=== PATIENT | male | born 1940 | race Caucasian/White ===

== ENCOUNTER → 2016-04-27 | Outpatient (CLI) | payer OTHER, BC ==
[~2016-04-27] MED LIST: AMIO200T4 PO; ASPI-435 PO; ASPI325T45 PO; BROM0.0911 OP; CLC/300 PO; DORZ2SOL17 OP; FLM4 PO; HYDR-3419 PO; LORA-741 PO; LPT40 PO; MULT-618 PO; MULTTAB58 PO; NITR-5 PO; OMEG-27 PO; OMEGCAP2 PO; POTASSIUM CITRATE PO; PRED1SUS3 OPL; TOBRSUS; WARF2TAB8 PO
[2016-04-27 13:27] LABS: ALT/SGPT 37 U/L (12-78); AST/SGOT 26 U/L (15-37); BLOOD UREA NITROGEN 25 mg/dl (7-18); CALCIUM 9.2 mg/dl (8.5-10.1); CARBON DIOXIDE 26 mmol/L (21-32); CHLORIDE 104 mmol/L (98-107); CHOLESTEROL 132 mg/dl (0-200); GLUCOSE 163 mg/dl (70-99); POTASSIUM 4.2 mmol/L (3.5-5.1); SODIUM 139 mmol/L (136-145); TRIGLYCERIDES 155 mg/dl (0-150); VERY LOW DENSITY LIPOPROT CALC 31 mg/dl
[2016-04-27 13:30] LABS: CHOLESTEROL/HDL RATIO 3.2; HDL CHOLESTEROL 41 mg/dl; LDL CHOLESTEROL CALCULATED 60 mg/dl
[2016-04-27 13:39] LABS: ESTIMATED AVERAGE GLUCOSE 120 mg/dl; HA1C FLAG Normal (Normal)
[2016-04-27 13:53] LABS: RATIO 40.8 mcg/mg (0-30.0)
== END | disposition home or self-care (01) ==
LOC: C.LABMFLN 09:04
PROVIDERS: ATTEND Family Medicine
DX: E78.00 Pure hypercholesterolemia, unspecified (principal); E11.9 Type 2 diabetes mellitus without complications; I10 Essential (primary) hypertension; I48.91 Unspecified atrial fibrillation

== ENCOUNTER → 2016-05-12 | Outpatient (CLI) | payer OTHER, BC ==
[2016-05-12 18:01] LABS: URINE APPEARANCE CLOUDY (CLEAR); URINE BILIRUBIN NEG (NEG); URINE COLOR YELLOW; URINE EPITHELIAL CELL AUTO 0-5 /lpf (0-5); URINE NITRITE NEG (NEG); URINE PH 5.5 (4.5-7.5); URINE SPECIFIC GRAVITY 1.012 (1.000-1.030); UROBILINOGEN NEG (NEG)
[2016-05-12 18:09] LABS: MANUAL MICROSCOPIC REQUIRED? NO; REVIEW REQ? NO
== END | disposition home or self-care (01) ==
LOC: C.LABMFLN 08:12
PROVIDERS: ATTEND Family Medicine
DX: E11.9 Type 2 diabetes mellitus without complications (principal); R31.9 Hematuria, unspecified

== ENCOUNTER → 2016-05-18 | Outpatient (CLI) | payer OTHER, BC | END | disposition home or self-care (01) | LOC: C.LABMFLN 09:08 | PROVIDERS: ATTEND Family Medicine | DX: R19.7 Diarrhea, unspecified (principal) ==

== ENCOUNTER → 2016-05-19 | Outpatient (CLI) | payer OTHER, BC ==
[2016-05-19 13:28] LABS: BASO % 0.3 %; BASO ABS # 0.02 K/uL (0-0.2); COMPLETE YES; HEMATOCRIT 44.7 % (42-52); IG% 0.2 %; LYMPH % 22.3 %; LYMPH ABS # 1.43 K/uL (1.2-3.4); MEAN CELL VOLUME 89.9 fL (80-100); MEAN CORPUSCULAR HEMOGLOBIN 30.8 pg (25-34); MEAN CORPUSCULAR HGB CONC 34.2 g/dl (32-36); MEAN PLATELET VOLUME 10.6 fL (7.4-10.4); MONO % 11.9 %; NEUT % 65.3 %; PLATELET COUNT 227 K/uL (130-400); RED BLOOD COUNT 4.97 M/uL (4.7-6.1)
== END | disposition home or self-care (01) ==
LOC: C.LABMFLN 14:15
PROVIDERS: ATTEND Family Medicine
DX: I48.91 Unspecified atrial fibrillation (principal)

== ENCOUNTER → 2016-07-15 | Outpatient (CLI) | payer OTHER, BC | END | disposition home or self-care (01) | LOC: C.LABMFLN 14:12 | PROVIDERS: ATTEND Physician Assistant | DX: R31.9 Hematuria, unspecified (principal) ==

== ENCOUNTER → 2016-08-10 | Outpatient (CLI) | payer OTHER, BC | END | disposition home or self-care (01) | LOC: C.LABMFLN 14:52 | PROVIDERS: ATTEND Physician Assistant | DX: R39.9 Unspecified symptoms and signs involving the genitourinary system (principal) ==

== ENCOUNTER → 2016-08-17 | Day surgery (SDC) | payer OTHER, BC ==
[2016-08-13 13:23] VITALS: Ht 170.2 cm; Wt 75.0 kg
[~2016-08-17] VITALS: Ht 170.2 cm; Wt 75.0 kg
[~2016-08-17] MED LIST changes: +ACETAMINOPHEN 325 MG TAB PO PRN; -ASPI325T45 PO; +BRIMONIDINE TART 0.2% OP SOLN PER DROP CHARGE ONE; +EpINEphrine INJ 1MG/ML AMP 1 MG/ML AMP ONE; -FLM4 PO; -HYDR-3419 PO; +LACTATED RINGER'S 1000ML 500 ML IV SCH; +LIDOCAINE 4% OP SOLN DROP CHARGE ONE; +LIDOCAINE 4% OP SOLN DROP CHARGE OPL SCH; +LIDOCAINE HCL 1% MPF 2 ML VIAL ONE; +MIDAZOLAM HCL 1 MG/ML 2ML VIAL ONE; +MOXIFLOXACIN OPH SOLN PER DROP CHARGE ONE; -MULT-618 PO; -OMEGCAP2 PO; +POVIDONE-IODINE OP SOLN 30 ML BTL ONE; +PROPARACAINE 0.5% OP SOLN PER DROP CHARGE OPL SCH; +TOBRAMYCIN/DEXAMETHASONE OPH OINT PER APPLN CHARGE ONE
[2016-08-17] MEDS: PHENYLEPHRINE HCL 2.5% OP SOLN PER DROP CHARGE OPL SCH ×2 (06:45→06:50)
[2016-08-17] MEDS: TROPICAMIDE 1% OP SOLN PER DROP CHARGE OPL SCH ×2 (06:46→06:51)
[2016-08-17] MEDS: CYCLOPENTOLATE HCL 1% OP SOLN PER DROP CHARGE OPL SCH ×2 (06:47→06:52)
[2016-08-17] MEDS: KETOROLAC 0.5% OP SOLN PER DROP CHARGE OPL SCH ×2 (06:48→06:53)
[2016-08-17] MEDS: MOXIFLOXACIN OPH SOLN PER DROP CHARGE OPL SCH (06:49)
--- NOTE | 2016-08-17 06:53 | History & Physical Bridge - [place] ---
H&P Re-Evaluation Bridge Note: I have examined the patient, reviewed the History & Physical and in the interval since the performance of the History & Physical I have noted the following changes of clinical significance: No changes noted
--- NOTE | 2016-08-17 07:56 | [facility] Post Operative Brief Note ---
Immediate Operative Summary Operative Date August 17, 2016. Pre-Operative Diagnosis Left Eye Cataract Post-Operative Diagnosis Same Procedure(s) Performed Left Cataract Phacoemulsification With Intraocular Lens Implant Surgeon Dr Gil Cargo Bracer Surgeon(s) None Estimated Blood Loss 0ml Findings cataract left eye Specimens None Complication(s) None Disposition Recovery Room / PACU
--- NOTE | 2016-08-17 07:56 | Discharge Instructions-SurgCtr ---
Discharge Instructions Date of Service August 17, 2016. Visit Reason for Visit: Left Cataract Discharge Discharge Diagnosis / Problem: cataract left eye Discharge Goals Goal(s): Improve function Activity Recommendations Activity Limitations: per Instructions/Follow-up section Lifting Limitations: no more than 5 pounds Anesthesia . Post Anesthesia Instructions: If you have had General Anesthesia or IV Sedation: * Do not drive today. * Resume driving when surgeon permits. * Do not make important decisions or sign legal documents today. * Call surgeon for: 1. Temperature elevations greater than 101 degrees F. 2. Uncontrollable pain. 3. Excessive bleeding. 4. Persistent nausea and vomiting. 5. Medication intolerance (nausea, vomiting or rash). * For nausea and vomiting use only clear liquids such as: tea, soda, bouillon until nausea subsides, then gradually increase diet as tolerated. * If you have any concerns or questions, call your surgeon's office. If physician is unavailable and it is an emergency, call 911 or go to the nearest emergency room. . Instructions / Follow-Up Instructions / Follow-Up ACTIVITY RECOMMENDATIONS: * Light activities * You may walk outside, read, watch television. * Mild irritation and blurred vision are common for the first few days, redness around the white part of the eye is common. MEDICATIONS: Resume previous medications unless instructed otherwise by your surgeon. Eye drops (today and tomorrow): Tobramycin - one drop in operative eye every 2 hours while awake Prednisolone 1% - one drop in operative eye every 2 hours while awake Bromfenac - one drop in operative eye once daily Dorzolamide/ Timolol - one drop in both eyes 2 times daily SPECIAL CARE INSTRUCTIONS: * If any problems or concerns, please call Dr. Gil's office at . * Keep plastic shield taped over eye to sleep at night. * Keep plastic shield taped over eye except to administer eye drops. * Keep plastic shield on until office visit the following day. FOLLOW UP VISIT: Follow-up with Dr. Gil in the [place] office as scheduled. If not already scheduled, please call the office at . Diet Recommendations Home Diet: resume previous diet Procedures Procedures Performed: Left Cataract Phacoemulsification With Intraocular Lens Implant Pending Studies Studies pending at discharge: no Medical Emergencies . Who to Call and When: Medical Emergencies: If at any time you feel your situation is an emergency, please call 911 immediately. . Non-Emergent Contact Non-Emergency issues call your: Heat Curer . . "Provider Documentation" section prepared by George Gil. .
--- NOTE | 2016-08-17 08:13 | OPERATIVE REPORT ---
DATE OF OPERATION: 08/17/2016 PREOPERATIVE DIAGNOSIS: Cataract, left eye. POSTOPERATIVE DIAGNOSIS: Cataract, left eye. PROCEDURE: Phacoemulsification cataract extraction with intraocular lens placement, left eye. SURGEON: Dr. Gil. COMPLICATIONS: None. ESTIMATED BLOOD LOSS: None. ANESTHESIA: Topical with sedation. OPERATION AND FINDINGS: After informed consent was obtained in the holding area the patient was wheeled back to the Operating Room where cardiac monitoring leads and oxygen by nasal cannula was administered by Anesthesia. Gentle IV sedation was given, and the patient's left eye was prepped and draped in usual sterile fashion. A wire lid speculum was placed into the left eye and the operating microscope was swung into position. Using 0.12 forceps and a Supersharp blade a paracentesis port was made 3 o'clock hours away from the 12 o'clock position of patient's left eye. 1% non-preserved Lidocaine was then injected into the anterior chamber for anesthesia. A 2.2 mm keratotome blade was then used to make a shelved clear corneal incision at the 12 o'clock position of his left eye. Amvisc was injected into the anterior chamber and a cystotome and Utrata forceps were used to perform a curvilinear capsulorrhexis. BSS on a hydrodissection cannula was used to hydrodissect the lens nucleus away from the capsular bag. The phacoemulsification handpiece was then used in a stop and chop fashion to remove the lens nucleus. The irrigation and aspiration handpiece was then used to remove the residual cortical material. Amvisc was injected into the capsular bag and anterior chamber and a Bausch \T\ Lomb MX60 16.5 Diopter intraocular lens was injected into the capsular bag. Irrigation and aspiration handpiece was used to remove the residual viscoelastic material. The wounds were hydrated and noted to be watertight. The wire lid speculum was removed from the eye. Vigamox, Brimonidine, and TobraDex ointment were placed on the eye and it was shielded. It should be noted that EndoCoat was used during the case to protect the cornea endothelium. DISPOSITION: The patient tolerated the procedure well and was wheeled to the post anesthesia care unit in stable condition. I attest to the content of the Intraoperative Record and any orders documented therein. Any exceptions are noted below. I attest to the content of the Intraoperative Record and any orders documented therein. Any exceptions are noted below. MTDD
--- NOTE | 2016-08-17 08:17 | Anesthesia Progress Nt - [facility] ---
Anesthesia Post Op Note Date & Time August 17, 2016 at 08:16 Vital Signs Pain Intensity: 0 Vital Signs Past 12 Hours Date Time Temp Pulse Resp B/P Pulse Ox O2 Delivery O2 Flow Rate FiO2 08/17/16 07:58 36.6 53 20 125/77 97 Room Air 08/17/16 06:30 36.8 58 16 158/84 98 Notes Mental Status: alert / awake / arousable, participated in evaluation Pt Amnestic to Procedure: No (recall as expected) Nausea / Vomiting: adequately controlled Pain: adequately controlled Airway Patency, RR, SpO2: stable & adequate BP & HR: stable & adequate Hydration State: stable & adequate Anesthetic Complications: no major complications apparent Pt doing well.
[2016-08-17 08:24] VITALS: BP 111/54; PULSE 53; TEMP 36.6; O2SAT 98
== END | disposition home or self-care (01) ==
LOC: X.SURG 06:00
PROVIDERS: ATTEND Ophthalmology
DX: H25.12 Age-related nuclear cataract, left eye (principal); H40.059 Ocular hypertension, unspecified eye; E11.9 Type 2 diabetes mellitus without complications; E78.00 Pure hypercholesterolemia, unspecified; Z87.891 Personal history of nicotine dependence; I10 Essential (primary) hypertension

== ENCOUNTER → 2016-08-31 | Day surgery (SDC) | payer OTHER, BC ==
[2016-08-19 13:49] VITALS: Ht 170.2 cm; Wt 75.0 kg
[~2016-08-31] VITALS: Ht 170.2 cm; Wt 75.0 kg
[~2016-08-31] MED LIST changes: +500ML BSS 0.3ML EPI 1:1000PF IRRIG ONE; +AMVISC PLUS 0.8ML SYRINGE INT OCU ONE; +ATROPINE SULFATE 0.1 MG/ML 5ML SYR IV PRN; -BROM0.0911 OP; +BSS FLUSH ONE; -DORZ2SOL17 OP; +ENDOCOAT 0.85ML SYRINGE INT OCU ONE; -LIDOCAINE 4% OP SOLN DROP CHARGE OPL SCH; +LIDOCAINE 4% OP SOLN DROP CHARGE OPR SCH; -PRED1SUS3 OPL; -PROPARACAINE 0.5% OP SOLN PER DROP CHARGE OPL SCH; +PROPARACAINE 0.5% OP SOLN PER DROP CHARGE OPR SCH; +TOBRAMYCIN SULF 0.3% OP SOLN 5 ML BTL ONE; +TOBRAMYCIN SULF 0.3% OP SOLN 5 ML BTL OPR SCH; -TOBRSUS
[2016-08-31] MEDS: PHENYLEPHRINE HCL 2.5% OP SOLN PER DROP CHARGE OPR SCH ×2 (06:39→06:44)
[2016-08-31] MEDS: TROPICAMIDE 1% OP SOLN PER DROP CHARGE OPR SCH ×2 (06:40→06:45)
[2016-08-31] MEDS: CYCLOPENTOLATE HCL 1% OP SOLN PER DROP CHARGE OPR SCH ×2 (06:41→06:46)
[2016-08-31] MEDS: KETOROLAC 0.5% OP SOLN PER DROP CHARGE OPR SCH ×2 (06:42→06:47)
--- NOTE | 2016-08-31 08:10 | [facility] Post Operative Brief Note ---
Immediate Operative Summary Operative Date August 31, 2016. Pre-Operative Diagnosis Right Eye Cataract Post-Operative Diagnosis Same Procedure(s) Performed Right Cataract Phacoemulsification With Intraocular Lens Implant Surgeon Dr Gil Shim Plug Cutter Surgeon(s) None Estimated Blood Loss 0ml Findings cataract right eye Specimens None Complication(s) None Disposition Recovery Room / PACU
--- NOTE | 2016-08-31 08:10 | Discharge Instructions-SurgCtr ---
Discharge Instructions Date of Service August 31, 2016. Visit Reason for Visit: Right Cataract Discharge Discharge Diagnosis / Problem: cataract right eye Discharge Goals Goal(s): Improve function Activity Recommendations Activity Limitations: per Instructions/Follow-up section Lifting Limitations: no more than 5 pounds Anesthesia . Post Anesthesia Instructions: If you have had General Anesthesia or IV Sedation: * Do not drive today. * Resume driving when surgeon permits. * Do not make important decisions or sign legal documents today. * Call surgeon for: 1. Temperature elevations greater than 101 degrees F. 2. Uncontrollable pain. 3. Excessive bleeding. 4. Persistent nausea and vomiting. 5. Medication intolerance (nausea, vomiting or rash). * For nausea and vomiting use only clear liquids such as: tea, soda, bouillon until nausea subsides, then gradually increase diet as tolerated. * If you have any concerns or questions, call your surgeon's office. If physician is unavailable and it is an emergency, call 911 or go to the nearest emergency room. . Instructions / Follow-Up Instructions / Follow-Up ACTIVITY RECOMMENDATIONS: * Light activities * You may walk outside, read, watch television. * Mild irritation and blurred vision are common for the first few days, redness around the white part of the eye is common. MEDICATIONS: Resume previous medications unless instructed otherwise by your surgeon. Eye drops (today and tomorrow): Tobramycin - one drop in operative eye every 2 hours while awake Prednisolone 1% - one drop in operative eye every 2 hours while awake Bromfenac - one drop in operative eye once daily Dorzolamide/ timolol - one drop both eyes 2 times daily SPECIAL CARE INSTRUCTIONS: * If any problems or concerns, please call Dr. Gil's office at . * Keep plastic shield taped over eye to sleep at night. * Keep plastic shield taped over eye except to administer eye drops. * Keep plastic shield on until office visit the following day. FOLLOW UP VISIT: Follow-up with Dr. Gil in the [place] office as scheduled. If not already scheduled, please call the office at . Diet Recommendations Home Diet: resume previous diet Procedures Procedures Performed: Right Cataract Phacoemulsification With Intraocular Lens Implant Pending Studies Studies pending at discharge: no Medical Emergencies . Who to Call and When: Medical Emergencies: If at any time you feel your situation is an emergency, please call 911 immediately. . Non-Emergent Contact Non-Emergency issues call your: Theatre Instructor . . "Provider Documentation" section prepared by George Gil. .
[2016-08-31 08:33] VITALS: BP 112/68; PULSE 55; TEMP 36.5; O2SAT 100
--- NOTE | 2016-08-31 08:42 | Anesthesia Progress Nt - [facility] ---
Anesthesia Post Op Note Date & Time August 31, 2016 at 08:42 Vital Signs Pain Intensity: 0 Vital Signs Past 12 Hours Date Time Temp Pulse Resp B/P Pulse Ox O2 Delivery O2 Flow Rate FiO2 08/31/16 08:33 36.5 55 16 112/68 100 Room Air 08/31/16 08:08 36.5 54 16 127/74 99 Room Air 08/31/16 06:30 37.1 57 20 156/84 98 Room Air Notes Mental Status: alert / awake / arousable, participated in evaluation Pt Amnestic to Procedure: Yes Nausea / Vomiting: adequately controlled Pain: adequately controlled Airway Patency, RR, SpO2: stable & adequate BP & HR: stable & adequate Hydration State: stable & adequate Anesthetic Complications: no major complications apparent
--- NOTE | 2016-08-31 09:10 | OPERATIVE REPORT ---
DATE OF OPERATION: 08/31/2016 PREOPERATIVE DIAGNOSIS: Cataract, right eye. POSTOPERATIVE DIAGNOSIS: Cataract, right eye. PROCEDURE: Phacoemulsification cataract extraction with intraocular lens placement, right eye. SURGEON: Dr. Gil. COMPLICATIONS: None. ESTIMATED BLOOD LOSS: None. ANESTHESIA: Topical with sedation. DESCRIPTION OF PROCEDURE: After informed consent was obtained in the holding area the patient was wheeled back to the Operating Room where cardiac monitoring leads and oxygen by nasal cannula was administered by Anesthesia. Gentle IV sedation was given, and the patient's right eye was prepped and draped in usual sterile fashion. A wire lid speculum was placed into the right eye and the operating microscope was swung into position. Using 0.12 forceps and a Supersharp blade a paracentesis port was made 3 o'clock hours away from the 12 o'clock position of patient's right eye. 1% non-preserved Lidocaine was then injected into the anterior chamber for anesthesia. A 2.2 mm keratotome blade was then used to make a shelved clear corneal incision at the 12 o'clock position of his right eye. Amvisc was injected into the anterior chamber and a cystotome and Utrata forceps were used to perform a curvilinear capsulorrhexis. BSS on a hydrodissection cannula was used to hydrodissect the lens nucleus away from the capsular bag. The phacoemulsification handpiece was then used in a stop and chop fashion to remove the lens nucleus. The irrigation and aspiration handpiece was then used to remove the residual cortical material. Amvisc was injected into the capsular bag and anterior chamber and a Bausch \T\ Lomb LI61AO 17.0 Diopter intraocular lens was injected into the sulcus and the optic was captured by the anterior capsular opening. Irrigation and aspiration handpiece was used to remove the residual viscoelastic material. The wounds were hydrated and noted to be watertight. The wire lid speculum was removed from the eye. Vigamox, Brimonidine, and TobraDex ointment were placed on the eye and it was shielded. It should be noted that EndoCoat was used throughout the case to protect the cornea endothelium. DISPOSITION: The patient tolerated the procedure well and was wheeled to the post anesthesia care unit in stable condition. I attest to the content of the Intraoperative Record and any orders documented therein. Any exceptions are noted below. I attest to the content of the Intraoperative Record and any orders documented therein. Any exceptions are noted below. MTDD
== END | disposition home or self-care (01) ==
LOC: X.SURG 06:11
PROVIDERS: ATTEND Ophthalmology
DX: H25.11 Age-related nuclear cataract, right eye (principal); E11.9 Type 2 diabetes mellitus without complications; E78.00 Pure hypercholesterolemia, unspecified; Z87.442 Personal history of urinary calculi; Z87.891 Personal history of nicotine dependence; I48.91 Unspecified atrial fibrillation; Z79.01 Long term (current) use of anticoagulants

== ENCOUNTER → 2016-11-09 | Outpatient (CLI) | payer OTHER, BC ==
[~2016-11-09] MED LIST changes: -500ML BSS 0.3ML EPI 1:1000PF IRRIG ONE; -ACETAMINOPHEN 325 MG TAB PO PRN; -AMVISC PLUS 0.8ML SYRINGE INT OCU ONE; -ATROPINE SULFATE 0.1 MG/ML 5ML SYR IV PRN; -BRIMONIDINE TART 0.2% OP SOLN PER DROP CHARGE ONE; -BSS FLUSH ONE; -ENDOCOAT 0.85ML SYRINGE INT OCU ONE; -EpINEphrine INJ 1MG/ML AMP 1 MG/ML AMP ONE; -LACTATED RINGER'S 1000ML 500 ML IV SCH; -LIDOCAINE 4% OP SOLN DROP CHARGE ONE; -LIDOCAINE 4% OP SOLN DROP CHARGE OPR SCH; -LIDOCAINE HCL 1% MPF 2 ML VIAL ONE; -MIDAZOLAM HCL 1 MG/ML 2ML VIAL ONE; -MOXIFLOXACIN OPH SOLN PER DROP CHARGE ONE; -POVIDONE-IODINE OP SOLN 30 ML BTL ONE; -PROPARACAINE 0.5% OP SOLN PER DROP CHARGE OPR SCH; -TOBRAMYCIN SULF 0.3% OP SOLN 5 ML BTL ONE; -TOBRAMYCIN SULF 0.3% OP SOLN 5 ML BTL OPR SCH; -TOBRAMYCIN/DEXAMETHASONE OPH OINT PER APPLN CHARGE ONE
[2016-11-09 13:12] LABS: BASO % 0.3 %; BASO ABS # 0.02 K/uL (0-0.2); COMPLETE YES; EOS % 0.1 %; HEMATOCRIT 43.1 % (42-52); IG% 0.4 %; LYMPH % 19.4 %; LYMPH ABS # 1.31 K/uL (1.2-3.4); MEAN CELL VOLUME 91.7 fL (80-100); MEAN CORPUSCULAR HEMOGLOBIN 30.9 pg (25-34); MEAN CORPUSCULAR HGB CONC 33.6 g/dl (32-36); MEAN PLATELET VOLUME 10.4 fL (7.4-10.4); MONO % 8.7 %; NEUT % 71.1 %; PLATELET COUNT 211 K/uL (130-400); WHITE BLOOD COUNT 6.75 K/uL (4.8-10.8)
[2016-11-09 13:33] LABS: AST/SGOT 41 U/L (15-37); BLOOD UREA NITROGEN 18 mg/dl (7-18); BUN/CREATININE RATIO 13.8 (10-20); CALCIUM 9.1 mg/dl (8.5-10.1); CARBON DIOXIDE 29 mmol/L (21-32); CHLORIDE 106 mmol/L (98-107); CHOLESTEROL 148 mg/dl (0-200); GLUCOSE 140 mg/dl (70-99); POTASSIUM 4.2 mmol/L (3.5-5.1); SODIUM 142 mmol/L (136-145)
[2016-11-09 13:39] LABS: RATIO 77.9 mcg/mg (0-30.0)
[2016-11-09 13:44] LABS: ALKALINE PHOSPHATASE 114 U/L (45-117); ALT/SGPT 75 U/L (12-78); CHOLESTEROL/HDL RATIO 3.1; HDL CHOLESTEROL 48 mg/dl; LDL CHOLESTEROL CALCULATED 77 mg/dl; TRIGLYCERIDES 116 mg/dl (0-150); VERY LOW DENSITY LIPOPROT CALC 23 mg/dl
[2016-11-09 13:48] LABS: ESTIMATED AVERAGE GLUCOSE 140 mg/dl; HA1C FLAG Normal (Normal)
--- NOTE | 2016-11-17 13:17 | CODING QUERY MEDICAL NECESSITY ---
SUPPORTING DIAGNOSIS NEEDED Dr. Mckoy, A supporting diagnosis is required for the test/procedure performed on this patient in order for us to be reimbursed by the patient's insurance. Please provide a supporting diagnosis for the following test/procedure listed below next to the test name along with your signature. *If there is no additional diagnosis for this patient that would support the following test/procedure please document that below next to the test/procedure. Test(s)/Procedure(s) that require a supporting diagnosis: * [id number] GLYCATED HEMOGLOBIN DIAGNOSIS: DATE OF SERVICE: 11/09/16 Provider Signature: Date: Thank you Twin Santana [facility] Information Management Once completed, please kindly fax back to [phone] For questions please call [phone]
== END | disposition home or self-care (01) ==
LOC: C.LABMFLN 08:36
PROVIDERS: ATTEND Family Medicine
DX: E78.00 Pure hypercholesterolemia, unspecified (principal); I48.92 Unspecified atrial flutter; I48.91 Unspecified atrial fibrillation; E11.9 Type 2 diabetes mellitus without complications; I10 Essential (primary) hypertension; N20.0 Calculus of kidney; Z12.5 Encounter for screening for malignant neoplasm of prostate

== ENCOUNTER → 2016-11-18 | Outpatient (CLI) | payer OTHER, BC ==
[2016-11-18 17:56] LABS: URINE APPEARANCE CLEAR (CLEAR); URINE BILIRUBIN NEG (NEG); URINE COLOR YELLOW; URINE NITRITE NEG (NEG); URINE SPECIFIC GRAVITY 1.016 (1.000-1.030); UROBILINOGEN NEG (NEG)
[2016-11-18 18:08] LABS: MANUAL MICROSCOPIC REQUIRED? NO; REVIEW REQ? NO
== END | disposition home or self-care (01) ==
LOC: C.LABMFLN 14:44
PROVIDERS: ATTEND Family Medicine
DX: N39.0 Urinary tract infection, site not specified (principal)

== ENCOUNTER → 2016-12-07 | Outpatient (CLI) | payer OTHER, BC ==
[2016-12-07 14:04] LABS: POTASSIUM 4.4 mmol/L (3.5-5.1)
== END | disposition home or self-care (01) ==
LOC: C.LABMFLN 09:19
PROVIDERS: ATTEND Family Medicine
DX: I10 Essential (primary) hypertension (principal); E11.9 Type 2 diabetes mellitus without complications

== ENCOUNTER → 2016-12-16 | Outpatient (CLI) | payer OTHER, BC ==
--- NOTE | 2016-12-25 12:01 | CODING QUERY MEDICAL NECESSITY ---
CQSUPPORTING DIAGNOSIS NEEDED A supporting diagnosis is required for the test/procedure performed on this patient in order for us to be reimbursed by the patient's insurance. Please provide a supporting diagnosis for the following test/procedure listed below next to the test name along with your signature. *If there is no additional diagnosis for this patient that would support the following test/procedure please document that below next to the test/procedure. Test(s)/Procedure(s) that require a supporting diagnosis: DOS 12/16/16 VITAMIN D TEST Provider Signature: Date: Thank you Leslye Smith Health Information Management Once completed, please kindly fax back to [phone] For questions please call [phone]
== END | disposition home or self-care (01) ==
LOC: C.LABMFLN 12:09
PROVIDERS: ATTEND Family Medicine
DX: E11.42 Type 2 diabetes mellitus with diabetic polyneuropathy (principal); I10 Essential (primary) hypertension

== ENCOUNTER → 2017-01-06 | Outpatient (CLI) | payer OTHER, BC ==
[2017-01-06 13:20] LABS: URINE APPEARANCE CLEAR (CLEAR); URINE BILIRUBIN NEG (NEG); URINE COLOR YELLOW; URINE NITRITE NEG (NEG); URINE SPECIFIC GRAVITY 1.018 (1.000-1.030); UROBILINOGEN NEG (NEG)
[2017-01-06 13:23] LABS: MANUAL MICROSCOPIC REQUIRED? NO; REVIEW REQ? NO
[2017-01-06 13:35] LABS: BLOOD UREA NITROGEN 19 mg/dl (7-18); BUN/CREATININE RATIO 14.3 (10-20); CARBON DIOXIDE 27 mmol/L (21-32); CHLORIDE 106 mmol/L (98-107); GLUCOSE 240 mg/dl (70-99); POTASSIUM 4.4 mmol/L (3.5-5.1); SODIUM 138 mmol/L (136-145)
== END | disposition home or self-care (01) ==
LOC: C.LABMFLN 09:47
PROVIDERS: ATTEND Family Medicine
DX: N39.0 Urinary tract infection, site not specified (principal); R78.81 Bacteremia

== ENCOUNTER → 2017-01-13 | Outpatient (CLI) | payer OTHER, BC ==
--- NOTE | 2017-01-18 11:36 | CODING QUERY MEDICAL NECESSITY ---
SUPPORTING DIAGNOSIS NEEDED Dr. Mckoy, A supporting diagnosis is required for the test/procedure performed on this patient in order for us to be reimbursed by the patient's insurance. Please provide a supporting diagnosis for the following test/procedure listed below next to the test name along with your signature. *If there is no additional diagnosis for this patient that would support the following test/procedure please document that below next to the test/procedure. Test(s)/Procedure(s) that require a supporting diagnosis: * ([id number]) B12 VITAMIN LEVEL DIAGNOSIS: * ([id number]) FOLATE LEVEL DIAGNOSIS: DATE OF SERVICE: 01/13/17 Provider Signature: Date: Thank you Twin Santana [facility] Information Management Once completed, please kindly fax back to [phone] For questions please call [phone]
== END | disposition home or self-care (01) ==
LOC: C.LABMFLN 13:29
PROVIDERS: ATTEND Family Medicine
DX: I10 Essential (primary) hypertension (principal); R53.83 Other fatigue; E55.9 Vitamin D deficiency, unspecified

== ENCOUNTER → 2017-04-13 | Outpatient (CLI) | payer OTHER, BC | END | disposition home or self-care (01) | LOC: C.LABMFLN 15:38 | PROVIDERS: ATTEND Family Medicine | DX: N39.0 Urinary tract infection, site not specified (principal) ==

== ENCOUNTER → 2017-05-04 | Outpatient (CLI) | payer OTHER, BC ==
[2017-05-04 12:44] LABS: BASO % 0.3 %; BASO ABS # 0.02 K/uL (0-0.2); HEMOGLOBIN 13.7 g/dL (14.0-18.0); IG# 0.03 K/uL (0.00-0.02); LYMPH % 17.6 %; LYMPH ABS # 1.12 K/uL (1.2-3.4); MEAN CELL VOLUME 92.3 fL (80-100); MEAN CORPUSCULAR HEMOGLOBIN 30.9 pg (25-34); MEAN CORPUSCULAR HGB CONC 33.4 g/dl (32-36); MEAN PLATELET VOLUME 10.2 fL (7.4-10.4); MONO % 9.4 %; NEUT % 72.2 %; NEUT ABS # 4.58 K/uL (1.4-6.5); PLATELET COUNT 205 K/uL (130-400); RED CELL DISTRIBUTION WIDTH CV 13.5 % (11.5-14.5); RED CELL DISTRIBUTION WIDTH SD 45.8 fL (36.4-46.3); WHITE BLOOD COUNT 6.35 K/uL (4.8-10.8)
[2017-05-04 13:15] LABS: HEMOGLOBIN A1C 6.4 % (4.5-5.6)
[2017-05-04 13:38] LABS: ALBUMIN 3.7 gm/dl (3.4-5.0); ALT/SGPT 45 U/L (12-78); BLOOD UREA NITROGEN 27 mg/dl (7-18); CALCIUM 8.7 mg/dl (8.5-10.1); CARBON DIOXIDE 26 mmol/L (21-32); CHOLESTEROL 265 mg/dl (0-200); CREATININE 1.49 mg/dl (0.60-1.40); GLUCOSE 139 mg/dl (70-99); POTASSIUM 4.4 mmol/L (3.5-5.1); SODIUM 137 mmol/L (136-145)
[2017-05-04 13:49] LABS: ALKALINE PHOSPHATASE 95 U/L (45-117); AST/SGOT 28 U/L (15-37); LDL CHOLESTEROL CALCULATED 181 mg/dl; TOTAL PROTEIN 7.3 gm/dl (6.4-8.2)
== END | disposition home or self-care (01) ==
LOC: C.LABMFLN 08:39
PROVIDERS: ATTEND Family Medicine
DX: N39.0 Urinary tract infection, site not specified (principal); E78.00 Pure hypercholesterolemia, unspecified; E11.9 Type 2 diabetes mellitus without complications; I10 Essential (primary) hypertension; I48.91 Unspecified atrial fibrillation; E55.9 Vitamin D deficiency, unspecified

== ENCOUNTER → 2017-05-24 | Outpatient (CLI) | payer OTHER, BC | END | disposition home or self-care (01) | LOC: C.LABMFLN 14:37 | PROVIDERS: ATTEND Family Medicine | DX: N39.0 Urinary tract infection, site not specified (principal); R78.81 Bacteremia ==

== ENCOUNTER → 2017-11-11 | Outpatient (CLI) | payer OTHER, BC ==
[~2017-11-11] MED LIST changes: +CEFU1TAB35 PO; +CHOL20007 PO; +CMD1 PO; +CMD2 PO; +COEN1CAP17 PO; +CRAN500C2 PO; +CZR25 PO; +FINA5TAB PO; +REDCAP2 PO; +SULF800T23 PO; +TAMS0.4C38 PO
[2017-11-11 17:52] LABS: BASO % 0.2 %; BASO ABS # 0.02 K/uL (0-0.2); HEMATOCRIT 38.7 % (42-52); HEMOGLOBIN 12.9 g/dL (14.0-18.0); IG# 0.07 K/uL (0.00-0.02); LYMPH % 6.6 %; LYMPH ABS # 0.62 K/uL (1.2-3.4); MEAN CELL VOLUME 90.8 fL (80-100); MEAN CORPUSCULAR HEMOGLOBIN 30.3 pg (25-34); MEAN CORPUSCULAR HGB CONC 33.3 g/dl (32-36); MEAN PLATELET VOLUME 9.9 fL (7.4-10.4); MONO % 8.8 %; MONO ABS # 0.82 K/uL (0.11-0.59); NEUT % 83.7 %; NEUT ABS # 7.82 K/uL (1.4-6.5); PLATELET COUNT 265 K/uL (130-400); RED CELL DISTRIBUTION WIDTH CV 13.7 % (11.5-14.5); WHITE BLOOD COUNT 9.35 K/uL (4.8-10.8)
[2017-11-11 18:06] LABS: BLOOD UREA NITROGEN 24 mg/dl (7-18); CALCIUM 8.9 mg/dl (8.5-10.1); CARBON DIOXIDE 26 mmol/L (21-32); CREATININE 1.47 mg/dl (0.60-1.40); GLUCOSE 179 mg/dl (70-99); POTASSIUM 4.2 mmol/L (3.5-5.1); SODIUM 133 mmol/L (136-145)
== END | disposition home or self-care (01) ==
LOC: C.LABMFLN 15:33
PROVIDERS: ATTEND Family Medicine
DX: R53.83 Other fatigue (principal); N28.9 Disorder of kidney and ureter, unspecified

== ENCOUNTER → 2017-11-12 | Outpatient (CLI) | payer OTHER, BC | END | disposition home or self-care (01) | LOC: C.LABMFLN 09:59 | PROVIDERS: ATTEND Family Medicine | DX: R82.90 Unspecified abnormal findings in urine (principal) ==

== ENCOUNTER 2017-11-13 20:07 | Inpatient (IN) | payer OTHER, BC ==
[~2017-11-13] VITALS: Ht 170.2 cm; Wt 80.4 kg
[~2017-11-13 20:07] MED LIST changes: -CEFU1TAB35 PO; -CHOL20007 PO; -CMD1 PO; -CMD2 PO; -COEN1CAP17 PO; -CRAN500C2 PO; -CZR25 PO; -FINA5TAB PO; -REDCAP2 PO; -SULF800T23 PO; -TAMS0.4C38 PO
[2017-11-13 21:01] LABS: BASO % 0.2 %; BASO ABS # 0.03 K/uL (0-0.2); HEMOGLOBIN 13.1 g/dL (14.0-18.0); IG# 0.08 K/uL (0.00-0.02); LYMPH % 6.3 %; LYMPH ABS # 0.92 K/uL (1.2-3.4); MEAN CELL VOLUME 90.3 fL (80-100); MEAN CORPUSCULAR HEMOGLOBIN 31.1 pg (25-34); MEAN CORPUSCULAR HGB CONC 34.5 g/dl (32-36); MEAN PLATELET VOLUME 9.7 fL (7.4-10.4); MONO % 7.7 %; MONO ABS # 1.12 K/uL (0.11-0.59); NEUT % 85.3 %; NEUT ABS # 12.44 K/uL (1.4-6.5); PLATELET COUNT 257 K/uL (130-400); RED CELL DISTRIBUTION WIDTH CV 13.5 % (11.5-14.5); RED CELL DISTRIBUTION WIDTH SD 44.3 fL (36.4-46.3); WHITE BLOOD COUNT 14.59 K/uL (4.8-10.8)
[2017-11-13 21:22] LABS: ALBUMIN 3.7 gm/dl (3.4-5.0); CALCIUM 8.9 mg/dl (8.5-10.1); CREATININE 1.4 mg/dl (0.60-1.40); POTASSIUM 4.2 mmol/L (3.5-5.1); TOTAL PROTEIN 7.9 gm/dl (6.4-8.2)
--- NOTE | 2017-11-13 22:08 | DIAGNOSTIC IMAGING REPORT ---
EXAMINATION: RENAL ULTRASOUND CLINICAL HISTORY: Right flank pain COMPARISON STUDY: CT scan dated 04/07/2016 FINDINGS: The right kidney measures 11.9 cm. The left kidney measures 9.1 cm. There is no evidence of hydronephrosis. There are lobulated renal contours. No solid renal masses are visualized. No bladder abnormalities are visualized. Bilateral ureteral jets were visualized. IMPRESSION : 1. Lobulated renal contours 2. No evidence of hydronephrosis Electronically signed by: Juan Sheikh M.D. 11/13/2017 10:07 PM Dictated Date/Time: 11/13/2017 10:06 PM
--- NOTE | 2017-11-13 22:11 | DIAGNOSTIC IMAGING REPORT ---
TESTICULAR ULTRASOUND CLINICAL HISTORY: Right testicular pain. COMPARISON STUDY: No previous studies for comparison. FINDINGS: The right testis measures 33 x 22 x 26 mm. The left testis measures 35 x 19 x 22 mm. No intratesticular masses are visualized. There is right testicular hyperemia. There is a complex right-sided hydrocele with multiple septations. There is right epididymal hyperemia. IMPRESSION: 1. CT findings indicative of a right epididymal orchitis with a moderate associated complex hydrocele 2. No evidence of intratesticular mass 3. No evidence of testicular torsion Electronically signed by: Juan Sheikh M.D. 11/13/2017 10:10 PM Dictated Date/Time: 11/13/2017 10:07 PM
[2017-11-13] MEDS ORDERED: CMD1 PO (22:17)
[2017-11-13] MEDS ORDERED: CMD2 PO (22:18)
[2017-11-13] MEDS ORDERED: AMIO200T4 PO (22:23)
[2017-11-13] MEDS ORDERED: COEN1CAP17 PO (22:26)
[2017-11-13] MEDS ORDERED: CEFTRIAXONE SOD INJ 1 GM ADDVIAL IV STA (22:27)
[2017-11-13] MEDS ORDERED: CHOL20007 PO (22:27)
[2017-11-13] MEDS ORDERED: TAMS0.4C38 PO (22:28)
[2017-11-13] MEDS ORDERED: FINA5TAB PO (22:29)
[2017-11-13 22:31] LABS: INR 2.1 (0.9-1.1)
[2017-11-13] MEDS ORDERED: CZR25 PO (22:31)
[2017-11-13] MEDS ORDERED: CRAN500C2 PO (22:32)
[2017-11-13] MEDS ORDERED: REDCAP2 PO (22:34)
[2017-11-13 22:43] LABS: PTT PATIENT 45.2 SECONDS (21.0-31.0)
--- NOTE | 2017-11-13 23:37 | History and Physical ---
History & Physical Date & Time of Service: Nov 13, 2017 at 23:19 Chief Complaint: Back Aches, Swollen Testical Primary Care Physician: Willie Mckoy M.D. History of Present Illness Source: patient, partner, hospital records 77M with a PMHx of Afib on Coumadin, BPH, UTIs presents with a one day history of a swollen painful testicle and sediment in his urine for the past few days. 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 He has had uretral stents placed in the past. Pt is but has not been sexually active recently. Pt has had a urine culture taken at his PCPs office one day prior (growing two types of Gram Negative Bacilli, cultures pending). Pt denies fevers, chills, dysuria or hematuria. He does report lower ridge sided back pain in the lumbar region - this however is chronic. Past Medical/Surgical History Medical Problems: (1) A-fib (2) Diabetes (3) Hematuria (4) UTI (lower urinary tract infection) Family History FH: cancer FH: diabetes mellitus FH: lung disease Social History Smoking Status: Never Smoker Smokeless Tobacco Use: No Alcohol Use: none Drug Use: none Marital Status: Housing status: lives with family Occupational Status: retired Immunizations History of Influenza Vaccine: Unknown History of Tetanus Vaccine?: Unknown History of Pneumococcal: Unknown History of Hepatitis B Vaccine: Unknown Allergies Coded Allergies: Ciprofloxacin (Verified Allergy, Severe, SOB AND RASH?, 08/31/16) Levetiracetam (Verified Allergy, Severe, SOB AND SHAKING, 08/31/16) Penicillins (Verified Allergy, Severe, SOB AND HIVES, 08/31/16) [place] (Verified Adverse Reaction, Mild, GI SYMPTOMS - DIARRHEA, 08/31/16) Home Medications Scheduled Amiodarone Hcl (Cordarone), 200 MG PO QAM Aspirin (Aspirin 81), 81 MG PO QAM Cholecalciferol (Vitamin D3), 2,000 UNITS PO DAILY Clindamycin HCl (Clindamycin HCl), 300 MG PO PRN Coenzyme Q10 (Ubidecarenone) (Co Q 10), 100 MG PO DAILY Cranberry (Vaccinium Macrocarp (Cranberry), 1,000 MG PO DAILY Finasteride (Proscar), 5 MG PO QPM Losartan Potassium (Losartan Potassium), 25 MG PO DAILY Multiple Vitamin (Multivitamin), 2 TAB PO QAM [place]-3 Fatty Acids (Fish Oil), 1,200 MG PO QAM Red Yeast Rice Extract (Red Yeast Rice), 1,200 MG PO DAILY Tamsulosin Hcl (Flomax), 0.8 MG PO QPM Warfarin Sod (Coumadin), 1 MG PO 3XWK Warfarin Sod (Coumadin), 2 MG PO 4XWK [Potassium Citrate], 15 MEQ PO QAM Review of Systems Constitutional: No fever, No chills ENT: No hearing loss Respiratory: No cough, No sputum, No wheezing, No shortness of breath, No dyspnea on exertion Cardiovascular: No chest pain Abdomen: No pain, No nausea, No vomiting, No diarrhea, No constipation Musculoskeletal: No joint pain Genitourinary - Male: No hematuria Neurologic: No memory loss Integumentary: No rash Physical Exam Vital Signs Date Time Temp Pulse Resp B/P (MAP) Pulse Ox O2 Delivery O2 Flow Rate FiO2 11/13/17 22:27 82 142/82 95 Room Air 11/13/17 20:11 36.6 92 18 150/82 96 Room Air General Appearance: WD/WN, no apparent distress, + obese Head: normocephalic, atraumatic Eyes: normal inspection, PERRL, EOMI ENT: normal ENT inspection Neck: supple, no adenopathy, thyroid normal, no JVD, no carotid bruits Respiratory/Chest: chest non-tender, lungs clear, normal breath sounds, no respiratory distress, no accessory muscle use Cardiovascular: regular rate, rhythm, no edema, no gallop, no JVD, no murmur, normal peripheral pulses Abdomen/GI: normal bowel sounds, non tender, soft, + pertinent finding (large body habitus makes it difficult to appreciate any organomegaly. ) Genitourinary - Male: + pertinent finding (pt has a diffusely enlarged and erythematous scrotum and a R testicle that is tender to palpation. ) Back: normal inspection, no CVA tenderness, no muscle spasm, normal range of motion Extremities/Musculoskelatal: normal inspection, no calf tenderness, normal capillary refill, no pedal edema, normal range of motion Neurologic/Psych: warp starter II-XII nml as tested, no motor/sensory deficits, alert, normal mood/affect, normal reflexes, oriented x 3 Skin: normal color Diagnostics Laboratory Results Results Past 24 Hours Test 11/13/17 20:35 11/13/17 20:41 Range/Units White Blood Count 14.59 4.8-10.8 K/uL Red Blood Count 4.21 4.7-6.1 M/uL Hemoglobin 13.1 14.0-18.0 g/dL Hematocrit 38.0 42-52 % Mean Corpuscular Volume 90.3 80-100 fL Mean Corpuscular Hemoglobin 31.1 25-34 pg Mean Corpuscular Hemoglobin Concent 34.5 32-36 g/dl Platelet Count 257 130-400 K/uL Mean Platelet Volume 9.7 7.4-10.4 fL Neutrophils (%) (Auto) 85.3 % Lymphocytes (%) (Auto) 6.3 % Monocytes (%) (Auto) 7.7 % Eosinophils (%) (Auto) 0.0 % Basophils (%) (Auto) 0.2 % Neutrophils # (Auto) 12.44 1.4-6.5 K/uL Lymphocytes # (Auto) 0.92 1.2-3.4 K/uL Monocytes # (Auto) 1.12 0.11-0.59 K/uL Eosinophils # (Auto) 0.00 0-0.5 K/uL Basophils # (Auto) 0.03 0-0.2 K/uL RDW Standard Deviation 44.3 36.4-46.3 fL RDW Coefficient of Variation 13.5 11.5-14.5 % Immature Granulocyte % (Auto) 0.5 % Immature Granulocyte # (Auto) 0.08 0.00-0.02 K/uL Prothrombin Time 21.5 9.0-12.0 SECONDS Prothromb Time International Ratio 2.1 0.9-1.1 Activated Partial Thromboplast Time 45.2 21.0-31.0 SECONDS Partial Thromboplastin Ratio 1.7 Sodium Level 132 136-145 mmol/L Potassium Level 4.2 3.5-5.1 mmol/L Chloride Level 100 98-107 mmol/L Carbon Dioxide Level 26 21-32 mmol/L Anion Gap 6.0 3-11 mmol/L Blood Urea Nitrogen 22 7-18 mg/dl Creatinine 1.40 0.60-1.40 mg/dl Est Creatinine Clear Calc Drug Dose 45.2 ml/min Estimated GFR () 55.8 Estimated GFR (Non- 48.1 BUN/Creatinine Ratio 15.6 10-20 Random Glucose 221 70-99 mg/dl Calcium Level 8.9 8.5-10.1 mg/dl Total Bilirubin 0.9 0.2-1 mg/dl Direct Bilirubin 0.2 0-0.2 mg/dl Aspartate Amino Transf (AST/SGOT) 18 15-37 U/L Alanine Aminotransferase (ALT/SGPT) 33 12-78 U/L Alkaline Phosphatase 119 45-117 U/L Total Protein 7.9 6.4-8.2 gm/dl Albumin 3.7 3.4-5.0 gm/dl Urine Color YELLOW Urine Appearance CLEAR CLEAR Urine pH 5.0 4.5-7.5 Urine Specific [place] 1.016 1.000-1.030 Urine Protein NEG NEG Urine Glucose (UA) 2+ NEG Urine Ketones NEG NEG Urine Occult Blood 1+ NEG Urine Nitrite NEG NEG Urine Bilirubin NEG NEG Urine Urobilinogen NEG NEG Urine Leukocyte Esterase LARGE NEG Urine WBC (Auto) >30 0-5 /hpf Urine RBC (Auto) 0-4 0-4 /hpf Urine Hyaline Casts (Auto) 1-5 0-5 /lpf Urine Epithelial Cells (Auto) 0-5 0-5 /lpf Urine Bacteria (Auto) 2+ NEG Microbiology Results 11/13/17 Blood Culture, Received Pending 11/13/17 Blood Culture, Received Pending Diagnostic Radiology TESTICULAR ULTRASOUND CLINICAL HISTORY: Right testicular pain. COMPARISON STUDY: No previous studies for comparison. FINDINGS: The right testis measures 33 x 22 x 26 mm. The left testis measures 35 x 19 x 22 mm. No intratesticular masses are visualized. There is right testicular hyperemia. There is a complex right-sided hydrocele with multiple septations. There is right epididymal hyperemia. IMPRESSION: 1. CT findings indicative of a right epididymal orchitis with a moderate associated complex hydrocele 2. No evidence of intratesticular mass 3. No evidence of testicular torsion EXAMINATION: RENAL ULTRASOUND CLINICAL HISTORY: Right flank pain COMPARISON STUDY: CT scan dated 04/07/2016 FINDINGS: The right kidney measures 11.9 cm. The left kidney measures 9.1 cm. There is no evidence of hydronephrosis. There are lobulated renal contours. No solid renal masses are visualized. No bladder abnormalities are visualized. Bilateral ureteral jets were visualized. IMPRESSION : 1. Lobulated renal contours 2. No evidence of hydronephrosis Impression Assessment and Plan 77M with enlarged scrotum, US shows orchitis, WBC elevated. Lactate Pending. Urine culture from 11/12/17 growing gram negative bacilli - cultures pending. Started on Rocephin. R epididymal orchitis with a moderate associated complex hydrocele. Urine cultures from outpatient 11/12/17 show two types of gram negative bacilli. Given Rocephin in the ER, will continue. Await cultures from 11/12/17. Blood cultures pending as well. A Fib (rhythm controlled) c/w Amiodarone c/w Warfarin. (INR 2.1) BPH c/w Proscar 5mg PO QPM & Flomax 0.8mg DM2 (diet controlled) c/w ASA HTN c/w Losartan Dispo: Obs, Med Surg, no needs anticipated on DC. Diet: DM2 DVT Proph: on Coumadin. FULL CODE Attending addendum: I have physically seen this patient, have supervised the medical residents activities, and agree with the H&P unless as otherwise noted. Assessment and Plan: Right epididymal orchitis/moderate associated complex hydrocele/outpatient urine culture 11/12/17 with gram-negative bacilli/BPH-- Continue Rocephin 1 g IV daily begun in ER. Follow urine culture and blood culture and sensitivities Continue Proscar and Flomax.. Atrial fibrillation/hypertension-- Continue the amiodarone, losartan and warfarin. Remaining orders and notations as above. Advanced Directives Existing Advance Directive: No Existing Living Will: No Existing Power of Wet Inspector Optical Glass: No Resuscitation Status VTE Prophylaxis Will order VTE Prophylaxis: Yes Resident Involvement: Resident Care Provided Care Provided: Adult Hospital Medicine
[2017-11-13] MEDS ORDERED: ALUMINUM/MAGNESIUM/SIMETH (MAALOX MAX) 30 ML UDC PO PRN (23:45)
[2017-11-13] MEDS ORDERED: POLYETHYLENE (MIRALAX) 17 GM PACK PO PRN (23:45)
[2017-11-13] MEDS ORDERED: ZOLPIDEM TARTRATE 5 MG TAB PO PRN (23:45)
[2017-11-13] MEDS ORDERED: MAGNESIUM HYDROXIDE SUSP 30 ML UDC PO PRN (23:45)
[2017-11-13] MEDS ORDERED: ONDANSETRON INJ 2 MG/ML 2 ML VIAL IV PRN (23:45)
[2017-11-13] MEDS ORDERED: ACETAMINOPHEN 325 MG TAB PO PRN (23:45)
--- NOTE | 2017-11-14 00:09 | EMERGENCY ROOM VISIT NOTE ---
History Report prepared by Landon: Sathish Jones Under the Supervision of: Dr. Johann Whitfield M.D. First contact with patient: 20:13 Chief Complaint: BACK PAIN Stated Complaint: BACK ACHES, SWOLLEN TESTICAL History of Present Illness The patient is a 77 year old male who presents to the Emergency Room with complaints of intermittent, right lower back pain beginning this morning. The patient states his symptoms worsen with movement, and it sometimes radiates around to his abdomen. He reports he also has trouble urinating. The patient notes he has not experienced trauma or burning with urination. He reports a history of kidney stones and UTIs. The patient notes he does not normally have back pain with his kidney stones. He states he woke up this morning with a swollen and red right testicle. The patient reports he does not have left testicle pain, and he did not strain himself with heavy lifting. He notes a history of controlled diabetes. The patient states he had blood work obtained two days ago that showed an elevated BUN and creatinine. He reports he gave a urine sample yesterday, but he will not have the results until Wednesday. The patient denies fevers, vomiting, chest pain, and upper abdominal pain. Source of History: patient Onset: this morning Position: back (right, lower) Timing: intermittent Modifying Factors (Worsening): movement Associated Symptoms: + abdominal pain (right lower), No fevers, No chest pain, No vomiting Review of Systems See HPI for pertinent positives & negatives. A total of 10 systems reviewed and were otherwise negative. Past Medical & Surgical Medical Problems: (1) A-fib (2) Diabetes (3) Orchitis Family History FH: cancer FH: diabetes mellitus FH: lung disease Social History Smoking Status: Never Smoker Marital Status: Housing Status: lives with significant other Occupation Status: retired Current/Historical Medications Scheduled Amiodarone Hcl (Cordarone), 200 MG PO QAM Aspirin (Aspirin 81), 81 MG PO QAM Cholecalciferol (Vitamin D3), 2,000 UNITS PO DAILY Clindamycin HCl (Clindamycin HCl), 300 MG PO PRN Coenzyme Q10 (Ubidecarenone) (Co Q 10), 100 MG PO DAILY Cranberry (Vaccinium Macrocarp (Cranberry), 1,000 MG PO DAILY Finasteride (Proscar), 5 MG PO QPM Losartan Potassium (Losartan Potassium), 25 MG PO DAILY Multiple Vitamin (Multivitamin), 2 TAB PO QAM [place]-3 Fatty Acids (Fish Oil), 1,200 MG PO QAM Red Yeast Rice Extract (Red Yeast Rice), 1,200 MG PO DAILY Tamsulosin Hcl (Flomax), 0.8 MG PO QPM Warfarin Sod (Coumadin), 1 MG PO 3XWK Warfarin Sod (Coumadin), 2 MG PO 4XWK [Potassium Citrate], 15 MEQ PO QAM Allergies Coded Allergies: Ciprofloxacin (Verified Allergy, Severe, SOB AND RASH?, 08/31/16) Levetiracetam (Verified Allergy, Severe, SOB AND SHAKING, 08/31/16) Penicillins (Verified Allergy, Severe, SOB AND HIVES, 08/31/16) [place] (Verified Adverse Reaction, Mild, GI SYMPTOMS - DIARRHEA, 08/31/16) Physical Exam Vital Signs Date Time Temp Pulse Resp B/P (MAP) Pulse Ox O2 Delivery O2 Flow Rate FiO2 11/14/17 00:04 81 18 138/71 95 Room Air 11/13/17 22:27 82 142/82 95 Room Air 11/13/17 20:11 36.6 92 18 150/82 96 Room Air Physical Exam Constitutional: Vital signs reviewed. Eyes: Pupils are equal round reactive to light. Conjunctiva are noninjected. ENT: Pharynx is clear without erythema or exudate. Mucous membranes are moist. Neck supple without meningeal signs. Respiratory: Clear to auscultation bilaterally. Breath sounds are equal bilaterally. Cardiovascular: Regular rate and rhythm. No rubs or gallops. GI: Soft, nondistended and nontender. Bowel sounds are present. : Significant swelling and tenderness to the right scrotum with induration. Left testicle is normal size and nontender. Cannot palpate right testicle. No extension of the perineum. No crepitus. Musculoskeletal: No peripheral edema. No lower extremity tenderness. No midline tenderness to the lumbar spine. No pain with movement or positioning. Integumentary: No cyanosis. Neurological: The patient is awake and alert. No focal deficits. Psychiatric: Normal affect. Medical Decision & Procedures ER Provider Diagnostic Interpretation: Radiology results as stated below per my review and the radiologist's interpretation: TESTICULAR ULTRASOUND CLINICAL HISTORY: Right testicular pain. COMPARISON STUDY: No previous studies for comparison. FINDINGS: The right testis measures 33 x 22 x 26 mm. The left testis measures 35 x 19 x 22 mm. No intratesticular masses are visualized. There is right testicular hyperemia. There is a complex right-sided hydrocele with multiple septations. There is right epididymal hyperemia. IMPRESSION: 1. CT findings indicative of a right epididymal orchitis with a moderate associated complex hydrocele 2. No evidence of intratesticular mass 3. No evidence of testicular torsion Electronically signed by: Juan Sheikh M.D. 11/13/2017 10:10 PM Dictated Date/Time: 11/13/2017 10:07 PM EXAMINATION: RENAL ULTRASOUND CLINICAL HISTORY: Right flank pain COMPARISON STUDY: CT scan dated 04/07/2016 FINDINGS: The right kidney measures 11.9 cm. The left kidney measures 9.1 cm. There is no evidence of hydronephrosis. There are lobulated renal contours. No solid renal masses are visualized. No bladder abnormalities are visualized. Bilateral ureteral jets were visualized. IMPRESSION : 1. Lobulated renal contours 2. No evidence of hydronephrosis Electronically signed by: Juan Sheikh M.D. 11/13/2017 10:07 PM Dictated Date/Time: 11/13/2017 10:06 PM Laboratory Results 11/13/17 20:35 Red Blood Count 4.21, Mean Corpuscular Volume 90.3, Mean Corpuscular Hemoglobin 31.1, Mean Corpuscular Hemoglobin Concent 34.5, Mean Platelet Volume 9.7, Neutrophils (%) (Auto) 85.3, Lymphocytes (%) (Auto) 6.3, Monocytes (%) (Auto) 7.7, Eosinophils (%) (Auto) 0.0, Basophils (%) (Auto) 0.2, Neutrophils # (Auto) 12.44, Lymphocytes # (Auto) 0.92, Monocytes # (Auto) 1.12, Eosinophils # (Auto) 0.00, Basophils # (Auto) 0.03 11/13/17 20:35 Test 11/13/17 20:35 11/13/17 20:41 11/13/17 23:42 White Blood Count 14.59 K/uL (4.8-10.8) Red Blood Count 4.21 M/uL (4.7-6.1) Hemoglobin 13.1 g/dL (14.0-18.0) Hematocrit 38.0 % (42-52) Mean Corpuscular Volume 90.3 fL (80-100) Mean Corpuscular Hemoglobin 31.1 pg (25-34) Mean Corpuscular Hemoglobin Concent 34.5 g/dl (32-36) Platelet Count 257 K/uL (130-400) Mean Platelet Volume 9.7 fL (7.4-10.4) Neutrophils (%) (Auto) 85.3 % Lymphocytes (%) (Auto) 6.3 % Monocytes (%) (Auto) 7.7 % Eosinophils (%) (Auto) 0.0 % Basophils (%) (Auto) 0.2 % Neutrophils # (Auto) 12.44 K/uL (1.4-6.5) Lymphocytes # (Auto) 0.92 K/uL (1.2-3.4) Monocytes # (Auto) 1.12 K/uL (0.11-0.59) Eosinophils # (Auto) 0.00 K/uL (0-0.5) Basophils # (Auto) 0.03 K/uL (0-0.2) RDW Standard Deviation 44.3 fL (36.4-46.3) RDW Coefficient of Variation 13.5 % (11.5-14.5) Immature Granulocyte % (Auto) 0.5 % Immature Granulocyte # (Auto) 0.08 K/uL (0.00-0.02) Prothrombin Time 21.5 SECONDS (9.0-12.0) Prothromb Time International Ratio 2.1 (0.9-1.1) Activated Partial Thromboplast Time 45.2 SECONDS (21.0-31.0) Partial Thromboplastin Ratio 1.7 Anion Gap 6.0 mmol/L (3-11) Est Creatinine Clear Calc Drug Dose 45.2 ml/min Estimated GFR () 55.8 Estimated GFR (Non- 48.1 BUN/Creatinine Ratio 15.6 (10-20) Calcium Level 8.9 mg/dl (8.5-10.1) Total Bilirubin 0.9 mg/dl (0.2-1) Direct Bilirubin 0.2 mg/dl (0-0.2) Aspartate Amino Transf (AST/SGOT) 18 U/L (15-37) Alanine Aminotransferase (ALT/SGPT) 33 U/L (12-78) Alkaline Phosphatase 119 U/L (45-117) Total Protein 7.9 gm/dl (6.4-8.2) Albumin 3.7 gm/dl (3.4-5.0) Urine Color YELLOW Urine Appearance CLEAR (CLEAR) Urine pH 5.0 (4.5-7.5) Urine Specific [place] 1.016 (1.000-1.030) Urine Protein NEG (NEG) Urine Glucose (UA) 2+ (NEG) Urine Ketones NEG (NEG) Urine Occult Blood 1+ (NEG) Urine Nitrite NEG (NEG) Urine Bilirubin NEG (NEG) Urine Urobilinogen NEG (NEG) Urine Leukocyte Esterase LARGE (NEG) Urine WBC (Auto) >30 /hpf (0-5) Urine RBC (Auto) 0-4 /hpf (0-4) Urine Hyaline Casts (Auto) 1-5 /lpf (0-5) Urine Epithelial Cells (Auto) 0-5 /lpf (0-5) Urine Bacteria (Auto) 2+ (NEG) Laboratory results as reviewed by me. Medications Administered Medications (Trade) Dose Ordered Sig/Rustam Route Start Time Stop Time Status Last Admin Dose Admin Ceftriaxone Sodium (Rocephin Inj) 1 gm NOW STAT IV 11/13/17 22:27 11/13/17 22:28 DC 11/13/17 22:48 1 GM ED Course 2014: The patient was evaluated in room A02. A complete history and physical exam was performed. 2224: I reevaluated the patient. I discussed his test results and the treatment plan. He verbalizes agreement and will be evaluated for further care. 2227: Ordered Rocephin 1gm IV 2242: I discussed the patient's case with Dr. Montero, [facility] Hospitalist. The patient will be evaluated for further care. Medical Decision This is a 77-year-old male who presents with back pain, urinary symptoms and testicular swelling. Differential diagnosis includes lumbar radiculopathy, kidney stone, UTI, pyelonephritis, epididymitis, orchitis, Donny's gangrene, cellulitis. I did perform a limited focused review of portions of the patient' s old chart on the electronic medical record. The patient has had no recent pertinent visits to this hospital. I did evaluate the patient as noted above. IV access was established. I did order and personally review the patient's urinalysis as described above. He does have signs of infection. I did order and review the patient's blood work as noted in the electronic medical record. His white blood cell count is elevated. I did order an ultrasound of the scrotum and kidneys. I did review the images myself as well as the radiology report as described above. There is no evidence of hydronephrosis. He does have epididymoorchitis. I did treat patient with ceftriaxone IV. I did recommend hospitalization for IV antibiotics. I did discuss the case with the hospitalist and child support case officer. Medication Reconcilliation Current Medication List: was personally reviewed by me Blood Pressure Screening Patient's blood pressure: Elevated blood pressure Blood pressure disposition: Referred to PCP Consults Time Called: 2227 Consulting Physician: Dr. Montero [facility] Hospitalist Returned Call: [phone] I discussed the patient's case with Dr. Montero [facility] Hospitalist. The patient will be evaluated for further care. Impression Primary Impression: Cellulitis of scrotum Additional Impressions: Epididymo-orchitis UTI (urinary tract infection) Anticoagulated on Coumadin Scribe Attestation The scribe's documentation has been prepared under my direct and personally reviewed by me in its entirety. I confirm that the note above accurately reflects all work, treatment, procedures, and medical decision making performed by me. Departure Information Dispostion Being Evaluated By Hospitalist Referrals Willie Mckoy M.D. (PCP) Patient Instructions My [facility] Problem Qualifiers Additional Impressions: UTI (urinary tract infection) Urinary tract infection type: acute cystitis Hematuria presence: with hematuria Qualified Codes: N30.01 - Acute cystitis with hematuria
[2017-11-14 01:37] VITALS: BP 162/84; PULSE 86; TEMP 37.1; O2SAT 95; Ht 170.2 cm; Wt 80.4 kg
[2017-11-14 06:24] LABS: CALCIUM 8.5 mg/dl (8.5-10.1); CREATININE 1.32 mg/dl (0.60-1.40); POTASSIUM 4.3 mmol/L (3.5-5.1)
[2017-11-14 07:03] VITALS: BP 115/74; PULSE 82; TEMP 37.2; O2SAT 95
[2017-11-14 07:17] LABS: BASO % 0.1 %; BASO ABS # 0.01 K/uL (0-0.2); HEMATOCRIT 35.3 % (42-52); IG# 0.07 K/uL (0.00-0.02); LYMPH % 6.7 %; LYMPH ABS # 0.84 K/uL (1.2-3.4); MEAN CELL VOLUME 90.1 fL (80-100); MEAN CORPUSCULAR HEMOGLOBIN 30.6 pg (25-34); MEAN PLATELET VOLUME 9.9 fL (7.4-10.4); MONO % 10.2 %; MONO ABS # 1.28 K/uL (0.11-0.59); NEUT % 82.4 %; NEUT ABS # 10.36 K/uL (1.4-6.5); PLATELET COUNT 263 K/uL (130-400); RED CELL DISTRIBUTION WIDTH CV 13.6 % (11.5-14.5); RED CELL DISTRIBUTION WIDTH SD 44.8 fL (36.4-46.3); WHITE BLOOD COUNT 12.56 K/uL (4.8-10.8)
[2017-11-14] MEDS ORDERED: LOSARTAN POTASSIUM 25 MG TAB PO SCH (08:00)
[2017-11-14] MEDS ORDERED: ASPIRIN 81 MG ECTAB PO SCH (08:00)
[2017-11-14] MEDS ORDERED: AMIODARONE 200 MG TAB PO SCH (08:00)
[2017-11-14] MEDS ORDERED: NURSING VERBAL MED ORDER ONE (09:45)
[2017-11-14 10:21] VITALS: TEMP 36.6
[2017-11-14] MEDS ORDERED: TAMSULOSIN HCL 0.4 MG CAP PO SCH ×2 (11:00→21:00)
--- NOTE | 2017-11-14 11:50 | Urology Consultation ---
History General Date of Service: Nov 14, 2017. Chief Complaint: Right testicular pain Primary Care Physician: Willie Mckoy M.D. Pt seen a urologist before?: Yes If yes, why?: Stone disease, BPH and recurrent UTI History of Present Illness 77-year-old male, known to our service, admitted early this morning due to a several day history of worsening right testicular pain. Patient has seen a number of urologists in the past and is currently being followed in [place] for a history of stone disease and BPH on maximal medical therapy with finasteride and tamsulosin. He was last seen by our service in February [address] Ramirez and has also previously seen Dr. Donovan for his care. He has a history of recurrent UTI and stone disease managed with lithotripsy in the past. His past inpatient and outpatient notes are reviewed. He notes no particular change in his urination prior to his right-sided scrotal pain. He denies trauma or other inciting event. He reports that since admission yesterday he is feeling much improved on his current therapy. Urology consultation is sought out to assist with his inpatient care. He has been afebrile since admission and his leukocytosis is improving. He has had a renal and scrotal ultrasound done this admission. The former shows no stones or hydronephrosis and the latter is suggestive of a right epididymal orchitis with a reactive complex hydrocele. Images personally reviewed. Scrotal US IMPRESSION: 1. CT [sic] findings indicative of a right epididymal orchitis with a moderate associated complex hydrocele 2. No evidence of intratesticular mass 3. No evidence of testicular torsion Renal US IMPRESSION : 1. Lobulated renal contours 2. No evidence of hydronephrosis Imaging Imaging: Ultrasound Laboratory Last 24 Hours Test 11/13/17 20:35 11/13/17 20:41 11/13/17 23:42 11/14/17 05:36 White Blood Count 14.59 K/uL 12.56 K/uL Red Blood Count 4.21 M/uL 3.92 M/uL Hemoglobin 13.1 g/dL 12.0 g/dL Hematocrit 38.0 % 35.3 % Mean Corpuscular Volume 90.3 fL 90.1 fL Mean Corpuscular Hemoglobin 31.1 pg 30.6 pg Mean Corpuscular Hemoglobin Concent 34.5 g/dl 34.0 g/dl Platelet Count 257 K/uL 263 K/uL Mean Platelet Volume 9.7 fL 9.9 fL Neutrophils (%) (Auto) 85.3 % 82.4 % Lymphocytes (%) (Auto) 6.3 % 6.7 % Monocytes (%) (Auto) 7.7 % 10.2 % Eosinophils (%) (Auto) 0.0 % 0.0 % Basophils (%) (Auto) 0.2 % 0.1 % Neutrophils # (Auto) 12.44 K/uL 10.36 K/uL Lymphocytes # (Auto) 0.92 K/uL 0.84 K/uL Monocytes # (Auto) 1.12 K/uL 1.28 K/uL Eosinophils # (Auto) 0.00 K/uL 0.00 K/uL Basophils # (Auto) 0.03 K/uL 0.01 K/uL RDW Standard Deviation 44.3 fL 44.8 fL RDW Coefficient of Variation 13.5 % 13.6 % Immature Granulocyte % (Auto) 0.5 % 0.6 % Immature Granulocyte # (Auto) 0.08 K/uL 0.07 K/uL Prothrombin Time 21.5 SECONDS 21.2 SECONDS Prothromb Time International Ratio 2.1 2.0 Activated Partial Thromboplast Time 45.2 SECONDS Partial Thromboplastin Ratio 1.7 Sodium Level 132 mmol/L 137 mmol/L Potassium Level 4.2 mmol/L 4.3 mmol/L Chloride Level 100 mmol/L 103 mmol/L Carbon Dioxide Level 26 mmol/L 27 mmol/L Anion Gap 6.0 mmol/L 7.0 mmol/L Blood Urea Nitrogen 22 mg/dl 20 mg/dl Creatinine 1.40 mg/dl 1.32 mg/dl Est Creatinine Clear Calc Drug Dose 45.2 ml/min 47.6 ml/min Estimated GFR () 55.8 59.9 Estimated GFR (Non- 48.1 51.7 BUN/Creatinine Ratio 15.6 15.0 Random Glucose 221 mg/dl 140 mg/dl Calcium Level 8.9 mg/dl 8.5 mg/dl Total Bilirubin 0.9 mg/dl Direct Bilirubin 0.2 mg/dl Aspartate Amino Transf (AST/SGOT) 18 U/L Alanine Aminotransferase (ALT/SGPT) 33 U/L Alkaline Phosphatase 119 U/L Total Protein 7.9 gm/dl Albumin 3.7 gm/dl Urine Color YELLOW Urine Appearance CLEAR Urine pH 5.0 Urine Specific [place] 1.016 Urine Protein NEG Urine Glucose (UA) 2+ Urine Ketones NEG Urine Occult Blood 1+ Urine Nitrite NEG Urine Bilirubin NEG Urine Urobilinogen NEG Urine Leukocyte Esterase LARGE Urine WBC (Auto) >30 /hpf Urine RBC (Auto) 0-4 /hpf Urine Hyaline Casts (Auto) 1-5 /lpf Urine Epithelial Cells (Auto) 0-5 /lpf Urine Bacteria (Auto) 2+ Lactic Acid Level 1.1 mmol/L Problem List Medical Problems: (1) Anticoagulated on Coumadin Status: Acute (2) Cellulitis of scrotum Status: Acute (3) Epididymo-orchitis Status: Acute (4) UTI (urinary tract infection) Status: Acute Past History A Fib, anxiety, BPH, diabetes, diverticulitis, diverticulosis, high cholesterol , kidney stones, urinary tract infection, other (Neuropathy) Past Surgical History: colonoscopy, lithotripsy, other (Tooth extraction) Family History FH: cancer FH: diabetes mellitus FH: lung disease Lung cancer and colon cancer Social History Hx Tobacco Use In Past Year?: No (QUIT 40 YEARS AGO) Smoking: quit greater than 1 year, no current use Alcohol: no current use Marital status: Housing status: lives with family Occupation status: retired Immunizations History of Influenza Vaccine: Unknown History of Tetanus Vaccine?: Unknown History of Pneumococcal: Unknown History of Hepatitis B Vaccine: Unknown Allergies Coded Allergies: Ciprofloxacin (Verified Allergy, Severe, SOB AND RASH?, 08/31/16) Levetiracetam (Verified Allergy, Severe, SOB AND SHAKING, 08/31/16) Penicillins (Verified Allergy, Severe, SOB AND HIVES, 08/31/16) Pratt (Verified Adverse Reaction, Mild, GI SYMPTOMS - DIARRHEA, 08/31/16) Medications Home Medications: Home Meds and Scripts Medications Dose Route/Sig Max Daily Dose Days Date Category Dose Instructions Red Yeast Rice (Red Yeast Rice Extract) 600 Mg Cap 1,200 Mg PO DAILY 11/13/17 Reported Cranberry (Cranberry (Vaccinium Macrocarp) 500 Mg Cap 1,000 Mg PO DAILY 11/13/17 Reported Losartan Potassium 25 Mg Tab 25 Mg PO DAILY 11/13/17 Reported Proscar (Finasteride) 5 Mg Tab 5 Mg PO QPM 11/13/17 Reported Flomax (Tamsulosin Hcl) 0.4 Mg Cap 0.8 Mg PO QPM 11/13/17 Reported Vitamin D3 (Cholecalciferol) 2,000 Unit Tab 2,000 Units PO DAILY 11/13/17 Reported Co Q 10 (Coenzyme Q10 (Ubidecarenone)) 100 Mg Cap 100 Mg PO DAILY 11/13/17 Reported Cordarone (Amiodarone Hcl) 200 Mg Tab 200 Mg PO QAM 11/13/17 Reported Coumadin (Warfarin Sod) 2 Mg Tab 2 Mg PO 4XWK 11/13/17 Reported TAKE 2MG EVERY WEDNESDAY/WEDNESDAY/WEDNESDAY/WEDNESDAY. Coumadin (Warfarin Sod) 1 Mg Tab 1 Mg PO 3XWK 11/13/17 Reported TAKE 1MG EVERY WEDNESDAY/WEDNESDAY/WEDNESDAY. Fish Oil ([place]-3 Fatty Acids) 1 Cap Cap 1,200 Mg PO QAM 08/13/16 Reported Multivitamin (Multiple Vitamin) 1 Tab Tab 2 Tab PO QAM 08/13/16 Reported TWO GUMMIES Aspirin 81 (Aspirin) 81 Mg Tab 81 Mg PO QAM 08/13/16 Reported [Potassium Citrate] 15 Meq PO QAM 06/29/14 Reported Clindamycin HCl 300 Mg Cap 300 Mg PO PRN 06/08/14 Reported PRIOR TO DENTAL WORK Inpatient Medications: Current Inpatient Medications Medications (Trade) Dose Ordered Sig/Rustam Route Start Time Stop Time Status Last Admin Dose Admin Acetaminophen (Tylenol Tab) 650 mg Q4H PRN PO 11/13/17 23:45 12/13/17 23:44 11/14/17 08:19 650 MG Al Hydrox/Mg Hydrox/Simethicone (Maalox Max Susp) 15 ml Q4H PRN PO 11/13/17 23:45 12/13/17 23:44 Magnesium Hydroxide (Milk Of Magnesia Susp) 30 ml Q6H PRN PO 11/13/17 23:45 12/13/17 23:44 Polyethylene (Miralax Powder Packet) 17 gm DAILY PRN PO 11/13/17 23:45 12/13/17 23:44 Zolpidem Tartrate (Ambien Tab) 5 mg HSZ PRN PO 11/13/17 23:45 12/13/17 23:44 11/14/17 01:01 5 MG Ondansetron HCl (Zofran Inj) 4 mg Q6H PRN IV 11/13/17 23:45 12/13/17 23:44 Ceftriaxone Sodium 1 gm/ Dextrose 50 ml @ 100 mls/hr Q24H IV 11/14/17 23:00 11/22/17 23:29 Amiodarone HCl (Cordarone Tab) 200 mg QAM PO 11/14/17 08:00 12/14/17 08:59 11/14/17 08:20 200 MG Aspirin (Ecotrin Tab) 81 mg QAM PO 11/14/17 08:00 12/14/17 08:59 11/14/17 08:20 81 MG Finasteride (Proscar Tab) 5 mg QPM PO 11/14/17 21:00 12/14/17 20:59 Losartan Potassium (coZAAR TAB) 25 mg DAILY PO 11/14/17 08:00 12/14/17 08:59 11/14/17 08:20 25 MG Warfarin Sodium (Coumadin Tab) 1.5 mg DAILY@1600 PO 11/14/17 16:00 12/14/17 15:59 Tamsulosin HCl (Flomax Cap) 0.8 mg Q24H PO 11/14/17 11:00 12/14/17 10:59 11/14/17 11:26 0.8 MG Review of Systems Review of Systems Constitutional: No fever, No chills Eyes: No blurred vision Neurological: No passing out, No numbness/tingling Endocrine: No too cold Gastrointestinal: No abdominal pain, No nausea, No vomiting Cardiovascular: No angina, No irregular heartbeat Respiratory: No shortness of breath Skin: No boils, No dry skin Musculoskeletal: + arthritis Blood / Lymphatic: No swollen glands Ears / Nose / Throat: No sinus, No hoarse voice Psychologic / Mental: No trouble remembering Male : + see HPI Physical Exam Vital Signs: Vital Signs Past 12 Hours Date Time Temp Pulse Resp B/P (MAP) Pulse Ox O2 Delivery O2 Flow Rate FiO2 11/14/17 10:21 36.6 11/14/17 08:00 Room Air 11/14/17 07:03 37.2 82 20 115/74 (88) 95 Room Air 11/14/17 01:37 37.1 86 16 162/84 95 Room Air 11/14/17 00:04 81 18 138/71 95 Room Air Physical Exam: General Appearance: no apparent distress, + obese ENT: normal ENT inspection, hearing grossly normal Neck: supple, no adenopathy Respiratory/Chest: no respiratory distress, no accessory muscle use Cardiovascular: no JVD Gastrointestinal: Bladder: normal bladder Renal: normal renal Liver: normal liver Spleen: normal spleen Genitourinary - Male: Penis: normal penis, pertinent finding (buried) Urethral Meatus: normal urethral meatus Testes: normal testes (left) Epididymides: enlarged, indurated (right) Scrotum: pertinent finding (edema on right) Neurologic/Psychiatric: alert, oriented x 3 Assessment & Plan Assessment & Plan A/P 77-year-old male with right epididymoorchitis, BPH, history of stones. Clinically patient seems to be responding quite well to his current therapy. Would consider discharge home with a 2 week course of either oral cephalosporins or Bactrim seen his quinolone allergy. Would use NSAIDs and scrotal support/ice packs for discomfort. Patient should follow-up as an outpatient with the urology service -he is unsure if he wishes to continue to follow up in [place] or more formally transfer his care to our service as has been discussed in the past. He should contact whomever he decides to see and arrange for follow-up. Worrisome signs and symptoms of progressive infection especially in the context of the patient's history of diabetes are reviewed. However, seen his clinical improvement, I think it would be reasonable for the patient to be discharged home today with short-term follow-up. We will not arrange for outpatient follow-up with our service but await for the patient to decide and contact whom he wants to see. Patient vocalizes good understanding of the treatment plan. Thank you for allowing us to participate in this patient's inpatient care. Please contact our service with any questions or concerns.
[2017-11-14] MEDS ORDERED: SULF800T23 PO (12:56)
--- NOTE | 2017-11-14 13:00 | Discharge Instructions ---
Discharge Instructions Date of Service Nov 14, 2017. Admission Reason for Admission: Orchitis Discharge Discharge Diagnosis / Problem: Orchitis, hydrocele Discharge Goals Goal(s): Improve function, Specific goals (follow up with urology) Activity Recommendations Activity Limitations: resume your previous activity . Instructions / Follow-Up Instructions / Follow-Up Medications: - CEFUROXIME: take twice a day for 14 days - MACROBID: take twice a day for 14 days Orchitis with hydrocele: urine culture from yesterday grew E coli, sensitive to Macrobid and 2nd generation cephalosporins Dr. Dasilva recommends two weeks of treatment, ice packs and scrotal support he feels you need follow up in 1-2 weeks with urology if you want to establish care with [facility] you can call discuss with them that this visit would be hospital follow up and Dr. Dasilva wanted you seen in 1-2 weeks Current Hospital Diet Patient's current hospital diet: Diabetes Type 2 Diet Discharge Diet Recommended Diet: Diabetes Type 2 Diet Pending Studies Studies pending at discharge: no Laboratory Results Hemoglobin A1c Test 09/27/17 09:04 Range/Units Estimated Average Glucose 140 mg/dl Hemoglobin A1c 6.5 H 4.5-5.6 % Lipid Panel Test 09/27/17 09:04 Range/Units Triglycerides Level 149 0-150 mg/dl Cholesterol Level 245 H 0-200 mg/dl HDL Cholesterol 48 mg/dl Cholesterol/HDL Ratio 5.1 LDL Cholesterol, Calculated 167 mg/dl Medical Emergencies . Who to Call and When: Medical Emergencies: If at any time you feel your situation is an emergency, please call 911 immediately. . Non-Emergent Contact Non-Emergency issues call your: Primary Care Provider, Urologist Call Non-Emergent contact if: you have a fever, your pain is not controlled, your pain is worsening, you have any medication questions . . "Provider Documentation" section prepared by Stew Wills. . [place] Drug Monitoring Program Search Results: no issues identified
[2017-11-14 13:09] VITALS: BP 115/74; PULSE 82; TEMP 36.6; O2SAT 95
[2017-11-14] MEDS ORDERED: CEFU1TAB35 PO (13:14)
[2017-11-14] MEDS ORDERED: NITR-5 PO (13:14)
[2017-11-14] MEDS ORDERED: WARFARIN SOD 0.5 MG TAB PO SCH (16:00)
[2017-11-14] MEDS ORDERED: FINASTERIDE 5 MG TAB PO SCH (21:00)
[2017-11-14] MEDS ORDERED: CEFTRIAXONE SOD INJ 1 GM in DEXTROSE 5% ADD-VANTAGE 50ML 50 ML IV SCH (23:00)
--- NOTE | 2017-11-19 21:20 | Discharge Summary ---
Discharge Summary Date of Service Nov 14, 2017. Discharge Summary Admission Date: Nov 13, 2017 at 23:46 Discharge Date: Nov 14, 2017 Discharge Disposition: Home Principal Diagnosis: Orchitis Problems/Secondary Diagnoses: Recurrent UTI Immunizations: Have You Had Influenza Vaccine: Unknown History of Tetanus Vaccine?: Unknown History of Pneumococcal: Unknown History of Hepatitis B Vaccine: Unknown Procedures: none Consultations: Urology - Dr. Dasilva Medication Reconciliation New Medications: Cefuroxime Axetil (Cefuroxime Axetil) 500 Mg Tab 500 MG PO Q12 for 14 Days, #28 TAB 0 Refills Nitrofurantoin Monohyd Macrocr (Macrobid) 100 Mg Cap 100 MG PO BID for 14 Days, #28 CAP Continued Medications: Amiodarone Hcl (Cordarone) 200 Mg Tab 200 MG PO QAM, TAB Aspirin (Aspirin 81) 81 Mg Tab 81 MG PO QAM Cholecalciferol (Vitamin D3) 2,000 Unit Tab 2000 UNITS PO DAILY, TAB Clindamycin HCl (Clindamycin HCl) 300 Mg Cap 300 MG PO PRN PRIOR TO DENTAL WORK Coenzyme Q10 (Ubidecarenone) (Co Q 10) 100 Mg Cap 100 MG PO DAILY Cranberry (Vaccinium Macrocarp (Cranberry) 500 Mg Cap 1000 MG PO DAILY Finasteride (Proscar) 5 Mg Tab 5 MG PO QPM, TAB Losartan Potassium (Losartan Potassium) 25 Mg Tab 25 MG PO DAILY Multiple Vitamin (Multivitamin) 1 Tab Tab 2 TAB PO QAM TWO GUMMIES [place]-3 Fatty Acids (Fish Oil) 1 Cap Cap 1200 MG PO QAM Red Yeast Rice Extract (Red Yeast Rice) 600 Mg Cap 1200 MG PO DAILY Tamsulosin Hcl (Flomax) 0.4 Mg Cap 0.8 MG PO QPM, CAP Warfarin Sod (Coumadin) 1 Mg Tab 1 MG PO 3XWK TAKE 1MG EVERY WEDNESDAY/WEDNESDAY/WEDNESDAY. Warfarin Sod (Coumadin) 2 Mg Tab 2 MG PO 4XWK TAKE 2MG EVERY WEDNESDAY/WEDNESDAY/WEDNESDAY/WEDNESDAY. [Potassium Citrate] () 15 MEQ PO QAM Discharge Exam patient felt well after being on IV antibiotics overnight. less pain, less swelling. Seen and examined by Dr. Dasilva, appreciated his recommendations. Plan to follow up with [facility] in the office. Reviewed urine culture results as outpatient, E coli that had some resistance to 1st generation cephalosporins. Could not use quinolones due to allergy to Cipro. Was going to place on Bactrim but he said that it made him really ill before. Discussed using cefuroxime and Macrobid, he said he tolerated both of those antibiotics in the past. Review of Systems: Constitutional: No fever, No chills, No sweats, No weight loss, No weakness , No fatigue, No problem reported Eyes: No worsening of vision, No eye pain, No redness, No discharge, No diplopia, No problem reported ENT: No hearing loss, No unusual epistaxis, No nasal symptoms, No sore throat, No tinnitus, No dental problems, No trouble swallowing, No problem reported Respiratory: No cough, No sputum, No wheezing, No shortness of breath, No dyspnea on exertion, No dyspnea at rest, No hemoptysis, No problem reported Cardiovascular: No chest pain, No orthopnea, No PND, No edema, No claudication, No palpitations, No problem reported Abdomen: No pain, No nausea, No vomiting, No diarrhea, No constipation, No GI bleeding, No problem reported Musculoskeletal: No joint pain, No muscle pain, No swelling, No calf pain, No problem reported Genitourinary - Male: + problem reported (swollen testicle, tenderness), No hematuria, No dysuria, No urinary frequency, No urinary urgency Neurologic: No memory loss, No paralysis, No weakness, No numbness/tingling , No vertigo, No balance problems, No problem reported Psychiatric: No depression symptoms, No anhedonism, No anxiety, No insomnia , No substance abuse, No problem reported Endocrine: No fatigue, No excessive thirst, No excessive urination, No problem reported Hematologic / Lymphatic: No abnormal bleeding/bruising, No clotting problems , No swollen lymph nodes, No night sweats, No problem reported Integumentary: No rash, No itch, No new/changing skin lesions, No color change, No bleeding, No problem reported Physical Exam: General Appearance: WD/WN, no apparent distress Eyes: normal inspection, EOMI, sclerae normal ENT: normal ENT inspection, hearing grossly normal, pharynx normal Neck: supple, no adenopathy, no JVD, trachea midline Respiratory/Chest: chest non-tender, lungs clear, normal breath sounds, no respiratory distress, no accessory muscle use Cardiovascular: regular rate, rhythm, no edema, no gallop, no JVD, no murmur , normal peripheral pulses Abdomen / GI: normal bowel sounds, non tender, soft, no organomegaly, + pertinent finding (R testicle tender, scrotum swollen mildly) Extremities: normal inspection, no calf tenderness, normal capillary refill , no pedal edema, normal range of motion, pelvis stable Neurologic/Psychiatric: 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 blood cultures x 2 negative urine culture as outpatient reviewed, E coli, resistant to first generation cephalosporins patient afebrile, less pain and swelling on Rocephin since admission evaluated by Dr. Dasilva, recommended 14 day course of antibiotics, follow up in office recommended ice packs and scrotal support, provided by RN prescribed Macrobid and Cefuroxime based on urine cultures abx choices limited by allergies and adverse effects A Fib (rhythm controlled) c/w Amiodarone c/w Warfarin. (INR 2.1 on admission) BPH c/w Proscar 5mg PO QPM & Flomax 0.8mg DM2 (diet controlled) c/w ASA HTN c/w Losartan Total Time Spent: Greater than 30 minutes This includes examination of the patient, discharge planning, medication reconciliation, and communication with other providers. Discharge Instructions Please refer to the electronic Patient Visit Report (Discharge Instructions) for additional information. Follow-Up [facility] in 1-2 weeks Additional Copies To Jeffy Ramirez M.D.
== END 2017-11-14 13:47 | disposition home or self-care (01) | DRG 728 ==
LOC: C.EDB 20:09 → C.MS4W 23:46 → ENRESERV 23:54
PROVIDERS: ADMIT Family Medicine; ATTEND Internal Medicine
DX: N45.2 Orchitis (principal); N39.0 Urinary tract infection, site not specified; N43.3 Hydrocele, unspecified; N40.1 Benign prostatic hyperplasia with lower urinary tract symptoms; I48.91 Unspecified atrial fibrillation; I10 Essential (primary) hypertension; E11.9 Type 2 diabetes mellitus without complications; Z87.442 Personal history of urinary calculi; Z87.891 Personal history of nicotine dependence; Z79.82 Long term (current) use of aspirin; Z79.01 Long term (current) use of anticoagulants; Z79.899 Other long term (current) drug therapy; Z88.0 Allergy status to penicillin; Z88.1 Allergy status to other antibiotic agents; Z88.8 Allergy status to other drugs, medicaments and biological substances; Z91.018 Allergy to other foods

== ENCOUNTER → 2017-11-29 | Outpatient (CLI) | payer OTHER, BC ==
[~2017-11-29] MED LIST changes: +CEFU1TAB35 PO; +CHOL20007 PO; +CMD1 PO; +CMD2 PO; +COEN1CAP17 PO; +CRAN500C2 PO; +CZR25 PO; +FINA5TAB PO; -LORA-741 PO; -LPT40 PO; +REDCAP2 PO; +TAMS0.4C38 PO; -WARF2TAB8 PO
[2017-11-29 12:40] LABS: BASO % 0.4 %; BASO ABS # 0.02 K/uL (0-0.2); HEMATOCRIT 38.8 % (42-52); HEMOGLOBIN 12.9 g/dL (14.0-18.0); IG# 0.02 K/uL (0.00-0.02); LYMPH % 15.2 %; LYMPH ABS # 0.85 K/uL (1.2-3.4); MEAN CELL VOLUME 91.9 fL (80-100); MEAN CORPUSCULAR HEMOGLOBIN 30.6 pg (25-34); MEAN CORPUSCULAR HGB CONC 33.2 g/dl (32-36); MEAN PLATELET VOLUME 9.8 fL (7.4-10.4); MONO % 9.1 %; MONO ABS # 0.51 K/uL (0.11-0.59); NEUT % 74.9 %; NEUT ABS # 4.19 K/uL (1.4-6.5); PLATELET COUNT 245 K/uL (130-400); RED CELL DISTRIBUTION WIDTH SD 46.2 fL (36.4-46.3); WHITE BLOOD COUNT 5.59 K/uL (4.8-10.8)
[2017-11-29 13:42] LABS: BLOOD UREA NITROGEN 23 mg/dl (7-18); CALCIUM 8.7 mg/dl (8.5-10.1); CARBON DIOXIDE 27 mmol/L (21-32); CREATININE 1.39 mg/dl (0.60-1.40); GLUCOSE 206 mg/dl (70-99); POTASSIUM 4.5 mmol/L (3.5-5.1); SODIUM 134 mmol/L (136-145)
== END | disposition home or self-care (01) ==
LOC: C.LABMFLN 09:57
PROVIDERS: ATTEND Family Medicine
DX: I48.91 Unspecified atrial fibrillation (principal); N39.0 Urinary tract infection, site not specified; N28.9 Disorder of kidney and ureter, unspecified